=== PATIENT | female | born 1985 | race Caucasian/White ===

== ENCOUNTER → 2018-06-23 | Outpatient (CLI) | payer OTHER | LOC: BMCIMAGING 15:47 | PROVIDERS: ATTEND Obstetrics & Gynecology | DX: O01.9 Hydatidiform mole, unspecified (principal) ==

== ENCOUNTER 2018-07-31 05:57 | Day surgery (SDC) | payer OTHER ==
[2018-07-31] MEDS ORDERED: LR 1,000 ML IV ONE (06:15)
--- NOTE | 2018-07-31 07:08 | PDANEPAE ---
ANE History of Present Illness hysteroscopy and myomectomy ANE Past Medical History - Cardiovascular History Hx Hypertension: No Hx Arrhythmias: No Hx Chest Pain: No Hx Coronary Artery / Peripheral Vascular Disease: No Hx CHF / Valvular Disease: No Hx Palpitations: No Cardiovascular History Comment: states BP "occasionally drops when I stand up" - Pulmonary History Hx COPD: No Hx Asthma/Reactive Airway Disease: Yes Hx Recent Upper Respiratory Infection: No Hx Oxygen in Use at Home: No Hx Sleep Apnea: No Sleep Apnea Screening Result - Last Documented: Negative Pulmonary History Comment: asthma as a child, no sx as an adult - Neurologic History Hx Cerebrovascular Accident: No Hx Seizures: Yes Hx Dementia: No Neurologic History Comment: had seizures after a concussion in 1998, none since - Endocrine History Hx Diabetes: No - Renal History Hx Renal Disorders: No - Liver History Hx Hepatic Disorders: No - Neurological & Psychiatric Hx Hx Neurological and Psychiatric Disorders: No - Cancer History Hx Cancer: No - Congenital Disorder History Hx Congenital Disorders: No - GI History Hx Gastrointestinal Disorders: No - Other Health History Other Health History: uterine fibroids. wears glasses - Chronic Pain History Chronic Pain: No - Surgical History Prior Surgeries: none ANE Review of Systems Review of Systems: - Exercise capacity METS (RN): 5 METS ANE Patient History - Allergies Allergies/Adverse Reactions: No Known Allergies Allergy (Verified 07/15/18 12:42) - Home Medications Home medications: home medication list seen and reviewed Home Medications: Pnv No.121/Iron/Folic Acid [ Multivitamin Tablet] 07/15/18 [Last Taken 07/17/18] - NPO status NPO Status: no food or drink >8 hours NPO Since - Liquids (Date): 07/30/18 NPO Since - Solids (Date): 07/30/18 - Anes Hx Anes Hx: no prior problems - Smoking Hx Smoking Status: Never smoked - Alcohol Use Alcohol Use: None - Family Anes Hx Family Anes Hx: none Family Hx Anesthesia Complications: mother has hx of severe nausea ANE Labs/Vital Signs - Vital Signs Blood Pressure: 103/65 Heart Rate: 78 Respiratory Rate: 14 O2 Sat (%): 98 Height: 172.72 cm Weight: 70.307 kg ANE Physical Exam - Airway Neck exam: FROM Mallampati Score: Class 1 Mouth exam: normal dental/mouth exam - Pulmonary Pulmonary: no respiratory distress - Cardiovascular Cardiovascular: regular rate and rhythym - ASA Status ASA Status: I ANE Anesthesia Plan Anesthesia Plan: GA w LMA Total IV Anesthesia: Yes
[2018-07-31] MEDS ORDERED: SILVER NITRATE APPLICATOR 1 APPL TP ONE (07:12)
[2018-07-31] MEDS ORDERED: BUPIVACAINE/EPI 0.25% 30 ML SDV ONE (07:12)
[2018-07-31] MEDS ORDERED: OPIUM/BELLADONNA ALKALO SUPP PR ONE (07:13)
--- NOTE | 2018-07-31 07:13 | PDGENHP ---
History & Physical Chief Complaint: Endometrial mass History of Present Illness: 33 yo who I met in clinic following apparent SAB with blighted ovum. On our first US we saw an endometrial mass affecting the cavity - and she had low level positive HCGs. US repeated approximately one month later and mass appears smaller, possible polyp. HCGs have normalized. Would like to try to concieve again DARIN. Pertinent Past, Social, Family History: Non-contributory. Relevant Physical Exam: NAD, RRR, LCTAB Assessment & Plan Assessment: Preop: HSC, polypectomy - Routine preop orders, no abx. - Likely home from PACU. BEBE
[2018-07-31] MEDS ORDERED: ONDANSETRON 4 MG/2 ML VIAL ONE (07:24)
[2018-07-31] MEDS ORDERED: PROPOFOL/EMULSION 500 MG/50 ML BOTTLE IV ONE ×2 (07:24→07:59)
[2018-07-31] MEDS ORDERED: fentaNYL 100 MCG/2 ML INJ ONE (07:24)
[2018-07-31] MEDS ORDERED: DEXAMETHASONE 4 MG/ML VIAL ONE (07:24)
[2018-07-31] MEDS ORDERED: LIDOCAINE 2% JELLY 6 ML TOPICAL SYR ONE (07:25)
[2018-07-31] MEDS ORDERED: LIDOCAINE 2% 100 MG/5 ML SYR ONE (07:30)
[2018-07-31] MEDS ORDERED: PHENYLEPHRINE HCL 100 MCG/ML SYR IVP PRN (08:13)
[2018-07-31] MEDS ORDERED: oxyCODONE IR 5 MG TAB PO PRN (08:13)
[2018-07-31] MEDS ORDERED: NALOXONE HCL 0.4 MG/ML INJ IVP PRN (08:13)
[2018-07-31] MEDS ORDERED: DEXAMETHASONE 4 MG/ML VIAL IVP PRN (08:13)
[2018-07-31] MEDS ORDERED: ONDANSETRON 4 MG/2 ML VIAL IVP PRN (08:13)
[2018-07-31] MEDS ORDERED: ACETAMINOPHEN 500 MG TAB PO PRN (08:13)
[2018-07-31] MEDS ORDERED: LR 500 ML IV PRN (08:13)
[2018-07-31] MEDS ORDERED: fentaNYL 100 MCG/2 ML INJ IVP PRN (08:13)
[2018-07-31] MEDS ORDERED: PROMETHAZINE HCL 25 MG/ML INJ IVP PRN (08:13)
[2018-07-31] MEDS ORDERED: HYDROCODONE/APAP 5/325 TAB PO PRN (08:13)
--- NOTE | 2018-07-31 08:36 | POSTOPPROG ---
Post Op Note Date of Operation: 07/31/18 Surgeon: Mic Perla S Iron Worker: None Anesthesiologist: Romeo Dean Anesthesia: LMA Pre-op Diagnosis: Endometrial mass, DUB, recent blighted ovum Post-op Diagnosis: Same Procedure: Diagnostic hysteroscopy, resection of endometrial mass Findings: 1cm polypoid mass arising from left cornual region, otherwise irreg lining Inf/Abcess present in the surg proc area at time of surgery?: No EBL: Minimal Total fluids administered: Deficit 430cc Complications: None Specimen(s): Endometrial mass
--- NOTE | 2018-07-31 08:45 | SUROPNOTE ---
[facility] Operative Report - Surgery Date of Operation: 07/31/18 Surgeon: Mic Perla Document Control Clerk: None Anesthesiologist: Romeo Dean Anesthesia: LMA Pre-op Diagnosis: Endometrial mass, DUB, recent blighted ovum Post-op Diagnosis: Same Procedure: Diagnostic hysteroscopy, resection of endometrial mass Findings: 1cm polypoid mass arising from left cornual region, otherwise irreg lining Inf/Abcess present in the surg proc area at time of surgery?: No EBL: Minimal Total fluids administered: Deficit 430cc Complications: None Specimen(s): Endometrial mass Technique: The patient was taken to the operating room where her identity and planned procedure were confirmed during timeout. The patient was placed under general anesthesia without issue, with LMA. When anesthesia was found to be adequate, the patient was prepped and draped in the normal sterile fashion in dorsal lithotomy position in Tony stirrups. No antibiotics were indicated nor given. The patient had voided hours prior to OR so straight cath was performed for 25cc urine. [place] speculum placed in the vagina and anterior lip of the cervix grasped with single-tooth tenaculum. We first used the 6mm TruClear hysteroscope but the patients cervix was naturally dilated more than 6mm so we were losing a lot of fluid around the scope. Upsized to the larger hysteroscope and then had excellent fluid control and visualization. The TruClear device was used to remove any polypoid lesions and sample other surrounding endometrium. The tenaculum was removed from the cervix and the tenaculum sites were found to be hemostatic. Sponge, lap, needle, and instrument counts were announced as as correct. B&O suppository placed at the conclusion of the case. I was scrubbed and present for the entire procedure.
[2018-07-31 09:03] VITALS: BP 110/52
--- NOTE | 2018-07-31 09:44 | POSTANESTH ---
Post Anesthetic Evaluation Cardiovascular Status: Normal, Stable Respiratory Status: Normal, Stable Level of Consciousness/Mental Status: Can Participate in Eval Pain Control: Adequate, Prn Tx Ordered Nausea/Vomiting Control: Adequate, Prn Tx Ordered Complications Possibly Related to Anesthesia: None Noted
== END 2018-07-31 09:25 | disposition home or self-care (01) ==
LOC: FSGY 05:57
PROVIDERS: ATTEND Obstetrics & Gynecology
PROC: 0UDB8ZZ Extraction of Endometrium, Via Natural or Artificial Opening Endoscopic (ICD-10-PCS; principal; 2018-07-31 07:15)
DX: N84.0 Polyp of corpus uteri (principal); N93.8 Other specified abnormal uterine and vaginal bleeding
CPT/HCPCS: 58563; C1782; J1100; J2001; J2405; J2704; J3010